=== PATIENT | female | born 1955 | race Caucasian/White ===

== ENCOUNTER 2017-09-20 08:33 | Day surgery (SDC) | payer OTHER ==
[2017-09-20 09:08] VITALS: O2SAT 100
--- NOTE | 2017-09-20 09:12 | CP.SDSHP ---
Same Day Surgery H & P - History Proposed Procedure: colonoscopy - Previous Medical/Surgical History Previous Surgical History: colonoscopy py - Allergies Allergies: Allergies No Known Allergies Allergy (Unverified 10/12/14 20:39) - Physical Exam Vital Signs: Vital Signs 09/20/17 08:59 Temperature 97.7 F Pulse Rate 80 Respiratory 18 Rate Blood Pressure 146/79 O2 Sat by Pulse 100 Oximetry - Date & Time Date: 09/20/17 Time: 09:12 Short Stay Discharge - Short Stay Discharge Admitting Diagnosis/Reason for Visit: ENCOUNTER FOR SCREENING FOR MALIGNANT NEOPLASM OF Disposition: HOME/ ROUTINE Referrals: FAMILY PROVIDER,NO [Primary Care Provider] -
[2017-09-20] MEDS ORDERED: Propofol 10 mg/ml Inj (20 ML) ONE (11:00)
[2017-09-20 11:57] VITALS: TEMP 96.9
[2017-09-20 12:06] VITALS: RESP 12
[2017-09-20 12:23] VITALS: BP 131/77; PULSE 71
== END 2017-09-20 12:45 | disposition home or self-care (01) ==
LOC: C.ENDO 08:33
PROVIDERS: ATTEND Colon & Rectal Surgery
DX: Z12.11 Encounter for screening for malignant neoplasm of colon (principal); K57.30 Diverticulosis of large intestine without perforation or abscess without bleeding; K62.1 Rectal polyp
CPT/HCPCS: 45388; 88305; J2704; J7040